=== PATIENT | female | born 1965 | race Caucasian/White ===

== ENCOUNTER → 2016-05-02 | Outpatient (CLI) | payer BC ==
--- NOTE | 2016-05-03 11:40 | MM ---
Reason for exam: screening (asymptomatic). Last mammogram was performed 1 year ago. Physical Findings: A clinical breast exam by your physician is recommended on an annual basis and results should be correlated with mammographic findings. MG Screening Mammo w CAD Bilateral CC and MLO view(s) were taken. Prior study comparison: April 26, 2015, bilateral MG screening mammo w CAD. December 04, 2013, bilateral MG screening mammo w CAD. There are scattered fibroglandular densities. No significant changes when compared with prior studies. ASSESSMENT: Negative, BI-RAD 1 RECOMMENDATION: Routine screening mammogram of both breasts in 1 year.
== END | disposition home or self-care (01) ==
LOC: RADMAMWWP 16:23
PROVIDERS: ATTEND Family Medicine
DX: Z12.31 Encounter for screening mammogram for malignant neoplasm of breast (principal)

== ENCOUNTER → 2017-05-28 | Outpatient (CLI) | payer BC ==
--- NOTE | 2017-05-30 07:27 | MM ---
Reason for exam: screening (asymptomatic). Last mammogram was performed 1 year and 1 month ago. Physical Findings: A clinical breast exam by your physician is recommended on an annual basis and results should be correlated with mammographic findings. MG Screening Mammo w CAD Bilateral CC and MLO view(s) were taken. Prior study comparison: May 02, 2016, bilateral MG screening mammo w CAD. April 26, 2015, bilateral MG screening mammo w CAD. There are scattered fibroglandular densities. Prominent right axillary nodes are stable back to 2016. No significant changes when compared with prior studies. ASSESSMENT: Benign, BI-RAD 2 RECOMMENDATION: Routine screening mammogram of both breasts in 1 year.
== END | disposition home or self-care (01) ==
LOC: RADMAMWWP 10:12
PROVIDERS: ATTEND Family Medicine
DX: Z12.31 Encounter for screening mammogram for malignant neoplasm of breast (principal)
CPT/HCPCS: 77067

== ENCOUNTER → 2018-06-11 | Outpatient (CLI) | payer BC ==
--- NOTE | 2018-06-13 09:40 | MM ---
Reason for exam: screening (asymptomatic). Last mammogram was performed 1 year ago. History: Patient is postmenopausal and history of other cancer. Took hormonal contraceptives for 2 months. Physical Findings: A clinical breast exam by your physician is recommended on an annual basis and results should be correlated with mammographic findings. MG Screening Mammo w CAD Bilateral CC and MLO view(s) were taken. Prior study comparison: May 28, 2017, bilateral MG screening mammo w CAD. May 02, 2016, bilateral MG screening mammo w CAD. There are scattered fibroglandular densities. No significant changes when compared with prior studies. ASSESSMENT: Benign, BI-RAD 2 RECOMMENDATION: Routine screening mammogram of both breasts in 1 year.
== END | disposition home or self-care (01) ==
LOC: RADMAMWWP 16:18
PROVIDERS: ATTEND Family Medicine
DX: Z12.31 Encounter for screening mammogram for malignant neoplasm of breast (principal)
CPT/HCPCS: 77067

== ENCOUNTER → 2019-06-23 | Outpatient (CLI) | payer BC ==
--- NOTE | 2019-06-23 15:48 | BD ---
EXAMINATION TYPE: Axial Bone Density DATE OF EXAM: 06/23/2019 COMPARISON: NONE CLINICAL HISTORY: 54 YR OLD FEMALE...ICD-10 CODE: N95.1 POST MENOPAUSAL Height: 64 Weight: 198 FRAX RISK QUESTIONS: NOTHING ADDITIONAL TO ADD HERE RISK FACTORS HISTORY OF: Postmenopausal woman: YES, AT 49 YRS OLD Hyperparathyroidism: NO Adrenal Insufficiency: NO MEDICATIONS: Additional Medications: BP MEDS, STATIN FOR CHOLESTEROL, MULTIVITAMIN Additional History: CLL, HYPERTENSION, CHOLESTEROL EXAM MEASUREMENTS: Bone mineral densitometry was performed using the [employer]. Bone mineral density as measured about the Lumbar spine is: ----- L1-L4(G/cm2): 1.332 T Score Values are as follows: ----- L1: 0.9 ----- L2: 1.5 ----- L3: 1.3 ----- L4: 1.1 ----- L1-L4: 1.3 Bone mineral density FIRST DEXA SCAN......BASELINE STUDY Bone mineral density about the R hip (g/cm2): 1.255 Bone mineral density about the L hip (g/cm2): 1.318 T Score values are as follows: -----R Neck: 0.9 -----L Neck: 1.0 -----R Total: 2.0 -----L Total: 2.5 Bone mineral density BASELINE STUDY FRAX%S: THERE IS A 4.4% CHANCE FOR A MAJOR OSTEOPOROTIC FX AND A 0.0% FOR HIP.....PROBABILITY FOR F X IN 10 YRS TIME IMPRESSION: Normal (Values between +1 and -1 indicate normal bone mass). Consider repeating this study in 5 year s or sooner if there is some new clinical indication. NOTE: T-SCORE=SD OF THE YOUNG ADULT MEAN.
--- NOTE | 2019-06-24 08:43 | MM ---
Reason for exam: screening (asymptomatic). Last mammogram was performed 1 year ago. History: Patient is postmenopausal and history of other cancer. Took hormonal contraceptives for 2 months. Physical Findings: A clinical breast exam by your physician is recommended on an annual basis and results should be correlated with mammographic findings. MG Screening Mammo w CAD Bilateral CC and MLO view(s) were taken. Prior study comparison: June 11, 2018, bilateral MG screening mammo w CAD. May 28, 2017, bilateral MG screening mammo w CAD. No suspicious abnormality. No significant changes when compared with prior studies. ASSESSMENT: Negative, BI-RAD 1 RECOMMENDATION: Routine screening mammogram of both breasts in 1 year.
== END | disposition home or self-care (01) ==
LOC: RADMAMWWP 12:31
PROVIDERS: ATTEND Obstetrics & Gynecology
DX: Z12.31 Encounter for screening mammogram for malignant neoplasm of breast (principal); N95.1 Menopausal and female climacteric states
CPT/HCPCS: 77067; 77080

== ENCOUNTER → 2020-07-26 | Outpatient (CLI) | payer BC ==
--- NOTE | 2020-07-28 09:15 | MM ---
Reason for exam: screening (asymptomatic). Last mammogram was performed 1 year and 1 month ago. History: Patient is postmenopausal and history of other cancer. Took hormonal contraceptives for 2 months. Physical Findings: A clinical breast exam by your physician is recommended on an annual basis and results should be correlated with mammographic findings. MG Screening Mammo w CAD Bilateral CC and MLO view(s) were taken. Prior study comparison: June 23, 2019, bilateral MG screening mammo w CAD. June 11, 2018, bilateral MG screening mammo w CAD. There are scattered fibroglandular densities. There is chronic nodularity in the left breast. No significant changes when compared with prior studies. ASSESSMENT: Negative, BI-RAD 1 RECOMMENDATION: Routine screening mammogram of both breasts in 1 year.
== END | disposition home or self-care (01) ==
LOC: RADMAMWWP 13:20
PROVIDERS: ATTEND Internal Medicine
DX: Z12.31 Encounter for screening mammogram for malignant neoplasm of breast (principal); Z78.0 Asymptomatic menopausal state
CPT/HCPCS: 77067

== ENCOUNTER → 2021-07-29 | Outpatient (CLI) | payer BC ==
--- NOTE | 2021-08-01 12:00 | MM ---
Reason for exam: screening (asymptomatic). Last mammogram was performed 1 year ago. History: Patient is postmenopausal and has history of other cancer at age 50. Took hormonal contraceptives for 2 months. Physical Findings: A clinical breast exam by your physician is recommended on an annual basis and results should be correlated with mammographic findings. MG Screening Mammo W/o Cad Bilateral CC and MLO view(s) were taken. Prior study comparison: July 26, 2020, bilateral MG screening mammo w CAD. June 23, 2019, bilateral MG screening mammo w CAD. The breast tissue is heterogeneously dense. This may lower the sensitivity of mammography. There is no discrete abnormality. Persistent pronounced lymph nodes, recommend clinical correlation. No significant changes when compared with prior studies. ASSESSMENT: Benign, BI-RAD 2 RECOMMENDATION: Routine screening mammogram of both breasts in 1 year. Manage patient on a clinical basis.
== END | disposition home or self-care (01) ==
LOC: RADMAMWWP 07:37
PROVIDERS: ATTEND Obstetrics & Gynecology
DX: Z12.31 Encounter for screening mammogram for malignant neoplasm of breast (principal); Z78.0 Asymptomatic menopausal state
CPT/HCPCS: 77067

== ENCOUNTER → 2022-08-04 | Outpatient (CLI) | payer BC ==
--- NOTE | 2022-08-07 08:50 | MM ---
Reason for Exam: Screening (asymptomatic). Last screening mammogram was performed 12 month(s) ago. Patient History: Menarche at age 12. First Full-Term at age 21. Postmenopausal. Other cancer, age 50. Hormonal Contraceptives for 2 months. Risk Values: Lien 5 year model risk: 1.2%. NCI Lifetime model risk: 6.9%. Prior Study Comparison: 06/23/2019 Bilateral Screening Mammogram, [facility]. 07/26/2020 Bilateral Screening Mammogram, [facility]. 07/29/2021 Bilateral Screening Mammogram, [facility]. Tissue Density: There are scattered fibroglandular densities. Findings: Analyzed By CAD. There is no suspicious group of microcalcifications in either breast. No suspicious group of calcifications with breast. Benign-appearing calcifications within the right breast. Focal asymmetry within the upper inner right breast at middle to posterior depth. Overall Assessment: Incomplete: need additional imaging evaluation, BI-RAD 0 Management: Diagnostic Mammogram of the right breast. A clinical breast exam by your physician is recommended on an annual basis and results should be correlated with mammographic findings. [facility] will attempt to contact patient to return for supplemental views and ultrasound if indicated. Electronically signed and approved by: Boris Moreland D.O.
== END | disposition home or self-care (01) ==
LOC: RADMAMWWP 11:00
PROVIDERS: ATTEND Family Medicine
DX: Z12.31 Encounter for screening mammogram for malignant neoplasm of breast (principal); Z78.0 Asymptomatic menopausal state
CPT/HCPCS: 77067

== ENCOUNTER → 2022-08-09 | Outpatient (CLI) | payer BC ==
--- NOTE | 2022-08-09 10:21 | MM ---
Reason for Exam: Additional evaluation requested from abnormal screening. Last screening mammogram was performed less than 1 month ago. Patient History: Menarche at age 12. First Full-Term at age 21. Postmenopausal. Other cancer, age 50. Hormonal Contraceptives for 2 months. Risk Values: Lien 5 year model risk: 1.2%. NCI Lifetime model risk: 6.9%. Prior Study Comparison: 05/02/2016 Bilateral Screening Mammogram, [facility]. 05/28/2017 Bilateral Screening Mammogram, [facility]. 06/11/2018 Bilateral Screening Mammogram, [facility]. 06/23/2019 Bilateral Screening Mammogram, [facility]. 07/26/2020 Bilateral Screening Mammogram, [facility]. 07/29/2021 Bilateral Screening Mammogram, [facility]. 08/04/2022 Bilateral MG screening mammo w CAD, [facility]. Tissue Density: Right: There are scattered fibroglandular densities. Findings: Analyzed By CAD. The area of medial focal asymmetry disperses on additional views. No significant change from prior exams. On screening exam, we note left axillary lymphadenopathy consistent with patient's known lymphoma. Overall Assessment: Negative, BI-RAD 1 Management: Screening Mammogram of both breasts in 1 year. . Results were given to the patient verbally at the time of exam. Patient should continue monthly self-breast exams. A clinical breast exam by your physician is recommended on an annual basis. This exam should not preclude additional follow-up of suspicious palpable abnormalities. Note on Lien scores and lifetime risk: 1. A Lien score greater than 3% is considered moderate risk. If this is the case, consider specialist referral to assess eligibility for a risk reducing agent. 2. If overall lifetime risk for the development of breast cancer is 20% or higher, the patient may qualify for future screening with alternating mammogram and breast MRI. Electronically signed and approved by: Ronnie Escudero M.D. Radiologist
== END | disposition home or self-care (01) ==
LOC: RADMAMWWP 08:54
PROVIDERS: ATTEND Family Medicine
DX: R92.8 Other abnormal and inconclusive findings on diagnostic imaging of breast (principal); Z78.0 Asymptomatic menopausal state
CPT/HCPCS: 77061; 77065

== ENCOUNTER → 2023-08-13 | Outpatient (CLI) | payer BC ==
--- NOTE | 2023-08-14 18:54 | MM ---
Reason for Exam: Screening (asymptomatic). Last mammogram was performed 1 year(s) and 1 month(s) ago. Patient History: Menarche at age 12. First Full-Term at age 21. Perimenopausal. Other cancer, age 50. Hormonal Contraceptives for 2 months. Risk Values: Lien 5 year model risk: 1.2%. NCI Lifetime model risk: 6.7%. Prior Study Comparison: 07/29/2021 Bilateral Screening Mammogram, [facility]. 08/04/2022 Bilateral MG screening mammo w CAD, [facility]. 08/09/2022 Right MG 3D work up w/cad RT, [facility]. Tissue Density: There are scattered areas of fibroglandular density. Findings: Analyzed By CAD. Unchanged bilateral prominent axillary lymph nodes. Technologist indicates that the patient has a history of CLL since 2015. There is no suspicious group of microcalcifications or new suspicious mass in either breast. Overall Assessment: Benign, BI-RAD 2 Management: Screening Mammogram of both breasts in 1 year. Patient with a known history of CLL. Patient should continue monthly self-breast exams. A clinical breast exam by your physician is recommended on an annual basis. This exam should not preclude additional follow-up of suspicious palpable abnormalities. Note on Lien scores and lifetime risk: 1. A Lien score greater than 3% is considered moderate risk. If this is the case, consider specialist referral to assess eligibility for a risk reducing agent. 2. If overall lifetime risk for the development of breast cancer is 20% or higher, the patient may qualify for future screening with alternating mammogram and breast MRI. Electronically signed and approved by: Ronnie Escudero M.D. Radiologist
== END | disposition home or self-care (01) ==
LOC: RADMAMWWP 09:25
PROVIDERS: ATTEND Family Medicine
DX: Z12.31 Encounter for screening mammogram for malignant neoplasm of breast (principal)
CPT/HCPCS: 77063; 77067

== ENCOUNTER → 2024-10-06 | Outpatient (CLI) | payer BC ==
--- NOTE | 2024-10-06 16:20 | MM ---
Reason for Exam: Screening (asymptomatic). Last mammogram was performed 1 year(s) and 1 month(s) ago. Patient History: Menarche at age 12. First Full-Term at age 21. Perimenopausal. Other cancer, age 50. Hormonal Contraceptives for 2 months. Risk Values: Lien 5 year model risk: 1.3%. NCI Lifetime model risk: 6.6%. Prior Study Comparison: 08/04/2022 Bilateral MG screening mammo w CAD, [facility]. 08/09/2022 Right MG 3D work up w/cad RT, [facility]. 08/13/2023 Bilateral MG 3D screening mammo w/cad, [facility]. Tissue Density: There are scattered areas of fibroglandular density. Findings: Analyzed By CAD. A number of borderline size, rounded, abnormal appearing axillary lymph nodes remain unchanged. There is no suspicious group of microcalcifications or new suspicious mass in either breast. Overall Assessment: Benign, BI-RAD 2 Management: Screening Mammogram of both breasts in 1 year. Appropriate clinical management of patient's CLL. Patient should continue monthly self-breast exams. A clinical breast exam by your physician is recommended on an annual basis. This exam should not preclude additional follow-up of suspicious palpable abnormalities. Note on Lien scores and lifetime risk: 1. A Lien score greater than 3% is considered moderate risk. If this is the case, consider specialist referral to assess eligibility for a risk reducing agent. 2. If overall lifetime risk for the development of breast cancer is 20% or higher, the patient may qualify for future screening with alternating mammogram and breast MRI. [facility], , 10/06/2024 4:17 PM. Electronically signed and approved by: Ronnie Escudero M.D. Radiologist
== END | disposition home or self-care (01) ==
LOC: RADMAMWWP 08:34
PROVIDERS: ATTEND Family Medicine
DX: Z12.31 Encounter for screening mammogram for malignant neoplasm of breast (principal); R92.323 Mammographic fibroglandular density, bilateral breasts; Z92.0 Personal history of contraception
CPT/HCPCS: 77063; 77067